=== PATIENT | female | born 1995 | race African-American/Black ===

== ENCOUNTER 2017-12-11 13:18 | Emergency (ER) | payer SELFPAY ==
[~2017-12-11] VITALS: Ht 167.6 cm; Wt 59.0 kg
[2017-12-11] MEDS ORDERED: NKM (13:51)
[2017-12-11] MEDS ORDERED: PROMETHAZINE-C118 M1 ORAL (14:14)
--- NOTE | 2017-12-11 14:15 | Emergency Room Report ---
History of Present Illness General Chief Complaint: Upper Respiratory Illness Source: Patient Present Illness HPI 22 yo female patient presents to ER complaining of cough x2 weeks. Reports green sputum with cough. Denies chest pain or blood in sputum. Denies SOB. Denies hx of asthma. Denies fever, nausea, vomiting, diarrhea, abdominal pain, GRULLON, rash. Reports hx of sick contacts at home with similar symptoms. Reports was seen at urgent care in [place] over a week ago and was given dextromethorphan for treatment; states just moved from [place] to [place]. Reports using Dextromethorphan without relief of symptoms. Reports worsening of symptoms at night. Denies dysuria, hematuria. Allergies: Coded Allergies: No Known Allergies (Unverified , 12/11/17) Patient History Past Medical History: see triage record Last Menstrual Period: nov Reviewed Nursing Documentation: PMH: Agreed, PSxH: Agreed Nursing Documentation-PMH Past Medical History: No Stated History Review of Systems All Other Systems: negative except mentioned in HPI Physical Exam Vital Signs Date Time Temp Pulse Resp B/P (MAP) Pulse Ox O2 Delivery O2 Flow Rate FiO2 12/11/17 13:47 98.5 72 16 111/75 96 Room Air 98.4 Sp02 EP Interpretation: reviewed, normal General Appearance: well appearing, no apparent distress, alert, GCS 15 Head: normocephalic, atraumatic Eyes: bilateral eye normal inspection, bilateral eye PERRL ENT: hearing grossly normal, normal pharynx, no angioedema, normal voice, TMs + canals normal, uvula midline, moist mucus membranes Neck: full range of motion Respiratory: lungs clear, normal breath sounds, no rhonchi, no respiratory distress, no accessory muscle use, no wheezing, speaking full sentences Cardiovascular #1: regular rate, rhythm, no edema Gastrointestinal: non tender, soft, no mass, non-distended, no guarding, no rebound Genitourinary: no CVA tenderness Musculoskeletal: back normal, digits/nails normal, gait/station normal, normal range of motion, non-tender Neurologic: alert, oriented x3, responsive, motor strength/tone normal, sensory intact Psychiatric: mood/affect normal Skin: no rash Lymphatic: no adenopathy Medical Decision Making PA Attestation Dr. Mccallum is my supervising Physician whom patient management has been discussed with. Diagnostic Impression: Primary Impression: Cough ER Course Pt presents to ED c/o cough. DDX considered but are not limited to influenza, viral URI, bronchitis, strep throat, rhinitis, sinusitis, otitis media. VITAL SIGNS are WNL, patient is afebrile On PE, lungs clear to auscultation. CURES report shows no filled prescriptions. ED INTERVENTIONS: none required at this time DISCHARGE: At this time pt is stable for d/c to home. Patient is resting comfortably, in no acute distress, nontoxic appearing. -Rx given for Promethazine with codeine syrup for cough sx. Do not take while drinking, driving, or operating heavy machinery, use prior to sleep to prevent cough at night symptoms. Take Tylenol for pain or flu-like symptoms. Does not need rx at this time. Patient to take medications as instructed Will provide with patient care instructions and any necessary prescriptions. Care plan and follow-up instructions provided. Patient instructed to follow-up with primary care provider in 3 - 5 days. Patient questions asked and answered. Patient reports understanding and agreement to treatment plan. ER precautions given. Patient instructed to return to ER immediately for any new or worsening of symptoms including but not limited to increasing SOB, persistent fever. Last Vital Signs Date Time Temp Pulse Resp B/P (MAP) Pulse Ox O2 Delivery O2 Flow Rate FiO2 12/11/17 13:47 98.5 72 16 111/75 96 Room Air 98.4 Disposition: HOME, SELF-CARE Condition: Stable Scripts Codeine/Promethazine Hcl* (PROMETHAZINE-CODEINE SYRUP*) 118 Ml Syrup 5 ML ORAL Q6H Y for For Cough for 7 Days, ML 0 Refills Prov: Hang Mendez 12/11/17 Referrals: NOT CHOSEN IPA/,REFERRING (PCP) Patient Instructions: Upper Respiratory Infection, Adult Additional Instructions: Followup with primary care provider in 3 -5 days. Take medications as directed. Do not take medication while drinking, driving, or operating heavy machinery. May cause drowsiness. Patient questions asked and answered. ER precautions given, patient instructed to return to ER immediately for any new or worsening of symptoms. Hang Mendez Dec 11, 2017 14:15
[2017-12-11 14:40] VITALS: BP_SYST 111; BP_SYST 117; BP_DIAS 69; BP_DIAS 75
== END 2017-12-11 14:40 | disposition home or self-care (01) ==
LOC: EMR 14:05
DX: R05 Cough (principal)
CPT/HCPCS: 99283

== ENCOUNTER 2018-09-08 11:19 | Emergency (ER) | payer SELFPAY ==
[~2018-09-08] VITALS: Ht 167.6 cm; Wt 59.0 kg
[~2018-09-08 11:19] MED LIST: NKM; PROMETHAZINE-C118 M1 ORAL
--- NOTE | 2018-09-08 12:13 | Emergency Room Report ---
History of Present Illness General Chief Complaint: Upper Respiratory Illness Source: Patient Present Illness HPI 22-year-old female with significant history of tobacco smoke here complaining of 3 days of productive cough with green and yellow phlegm. Patient reports low -grade fever and wheezing however denies history of asthma. She further complains of sore throat, congestion, and bilateral ear pain. Denies abdominal pain, nausea vomiting, fever or chills. Patient denies taking any medication for her symptoms. Denies chest pain palpitations Allergies: Coded Allergies: No Known Allergies (Unverified , 12/11/17) Patient History Past Medical History: see triage record Past Surgical History: unable to obtain Pertinent Family History: none Now: No Immunizations: UTD Reviewed Nursing Documentation: PMH: Agreed; PSxH: Agreed Nursing Documentation-PMH Past Medical History: No Stated History Review of Systems All Other Systems: negative except mentioned in HPI Physical Exam Vital Signs Date Time Temp Pulse Resp B/P (MAP) Pulse Ox O2 Delivery O2 Flow Rate FiO2 09/08/18 11:37 98.4 103 18 117/64 99 Room Air Sp02 EP Interpretation: reviewed, normal General Appearance: normal inspection, well appearing, no apparent distress, GCS 15 Head: normocephalic, atraumatic Eyes: bilateral eye normal inspection, bilateral eye PERRL ENT: no angioedema, uvula midline, nasal congestion, tonsillar swelling, pharyngeal erythema Neck: normal inspection, full range of motion, supple Respiratory: no rhonchi, no retraction, no accessory muscle use, wheezing - diffuse Cardiovascular #1: normal inspection, normal peripheral pulses, regular rate, rhythm, no edema Gastrointestinal: normal inspection, non tender, soft Rectal: deferred Genitourinary: deferred Musculoskeletal: normal inspection, back normal, normal range of motion Neurologic: normal inspection, alert, oriented x3 Psychiatric: normal inspection, judgement/insight normal, memory normal Skin: normal inspection, normal color, no rash, warm/dry Lymphatic: normal inspection, no adenopathy, axilla node tender (R) Medical Decision Making PA Attestation all diagnosis and treatment plans were reviewed and discussed with my supervising physician Dr. Boyce Diagnostic Impression: Primary Impression: Upper respiratory infection Additional Impression: Tobacco smoker within last 12 months ER Course 22-year-old female with significant history of tobacco smoke here complaining of 3 days of productive cough with green and yellow phlegm. Patient reports low -grade fever and wheezing however denies history of asthma. She further complains of sore throat, congestion, and bilateral ear pain. Denies abdominal pain, nausea vomiting, fever or chills. Patient denies taking any medication for her symptoms. Denies chest pain palpitations Ddx considered but are not limited to bronchitis, URI, strep, sinusitis, Vital signs: are WNL, pt. is afebrile H&PE are most consistent with URI and smoker ORDERS: jonah ellis, ventolin HFA ED INTERVENTIONS: None required at this time. DISCHARGE: At this time pt. is stable for d/c to home. Will provide printed patient care instructions, and any necessary prescriptions. Care plan and follow up instructions have been discussed with the patient prior to discharge. Last Vital Signs Date Time Temp Pulse Resp B/P (MAP) Pulse Ox O2 Delivery O2 Flow Rate FiO2 09/08/18 11:37 98.4 103 18 117/64 99 Room Air Disposition: HOME, SELF-CARE Condition: Stable Scripts Albuterol Sulfate (VENTOLIN HFA) 18 Gm Hfa.aer.ad 1 PUFF INH EVERY 6 HOURS, #18 GM 0 Refills Prov: Fran Marie 09/08/18 Promethazine/Dextromethorphan (Promethazine-Dm Syrup) 473 Ml Syrup 1 TSP ORAL Q4H PRN for For Cough, #118 ML 0 Refills Prov: Fran Marie 09/08/18 Azithromycin* (ZITHROMAX*) 250 Mg Tablet 250 MG ORAL DAILY, #6 TAB 0 Refills Take two tables once daily for 1 day, then one tablet once daily for 4 days. Prov: Fran Marie 09/08/18 Patient Instructions: Smoking Cessation, Tips for Success, [id number], Upper Respiratory Infection, Adult Additional Instructions: take medications as directed, rest and hydrate, avoid smoking. Fran Marie Sep 08, 2018 12:13
[2018-09-08] MEDS ORDERED: VENTOLIN HFA18 GM INH (12:15)
[2018-09-08] MEDS ORDERED: ZITHROMAX250 MG ORAL (12:15)
[2018-09-08] MEDS ORDERED: PHENERGAN6.25 MG/5 ORAL (12:15)
[2018-09-08 16:12] VITALS: BP 117/64
[2018-09-08 16:13] VITALS: BP 117/64
== END 2018-09-08 15:30 | disposition home or self-care (01) ==
LOC: EMR 12:32
DX: J06.9 Acute upper respiratory infection, unspecified (principal); F17.200 Nicotine dependence, unspecified, uncomplicated
CPT/HCPCS: 99283